=== PATIENT | female | born 1970 | race African-American/Black ===

== ENCOUNTER 2017-03-12 23:13 | Emergency (ER) | payer SELFPAY ==
[~2017-03-12] VITALS: Ht 170.2 cm; Wt 52.2 kg
[2017-03-12 23:46] LABS: *BILIRUBIN,URIN NEGATIVE (NEGATIVE); *BLOOD, URINE 3+ (NEGATIVE); *CLARITY,URINE HAZY (CLEAR); *COLOR,URINE YELLOW (YELLOW); *KETONES,URINE NEGATIVE (NEGATIVE); *PROTEIN,URINE 1+ (NEGATIVE); LEUKOCYTE ESTERASE ,URINE TRACE (NEGATIVE); NITRITE, URINE NEGATIVE (NEGATIVE); UGLUCOSE NEGATIVE (NEGATIVE)
--- NOTE | 2017-03-12 23:47 | NUR ---
urine sent. pt positioned for comfort
[2017-03-12 23:50] LABS: BACTERIA,URINE NONE SEEN /HPF (NONE SEEN); RBC,URINE TNTC /HPF (0-3); SQUAMOUS EPITHELIAL CELL,UR FEW /HPF (NONE SEEN); WBC,URINE 0-3 /HPF (0-3)
--- NOTE | 2017-03-13 00:09 | NUR ---
mse completed. pt d/c'd home, aci/rx x2 given . pt ambulated w/o diff/took all belongings, ambulated w/o diff.
[2017-03-13 00:11] VITALS: BP 135/92
[2017-03-13] MEDS ORDERED: PHENAZOPYRIDINE HCL 100 MG TABLET PO ONE (00:15)
[2017-03-13] MEDS ORDERED: PHENAZOPYRIDINE HCL 100 MG TABLET ONE (00:15)
== END 2017-03-13 00:11 | disposition home or self-care (01) ==
LOC: ER 23:17
DX: R30.0 Dysuria (principal)
CPT/HCPCS: 81001; 99283; A4663